=== PATIENT | female | born 1985 | race Caucasian/White ===

== ENCOUNTER → 2020-02-21 | Outpatient (CLI) | payer MEDICAID | LOC: MC.RAD 09:23 | DX: R59.0 Localized enlarged lymph nodes (principal); Z98.82 Breast implant status ==

== ENCOUNTER → 2020-07-10 | Outpatient (CLI) | payer MEDICAID | LOC: ZCOL.LAB 18:46 | DX: J02.9 Acute pharyngitis, unspecified (principal); Z20.828 Contact with and (suspected) exposure to other viral communicable diseases ==

== ENCOUNTER → 2020-07-27 | Outpatient (CLI) | payer MEDICAID | LOC: ZCOL.LAB 16:36 | DX: U07.1 COVID-19 (principal) ==

== ENCOUNTER → 2022-03-14 | Outpatient (CLI) | payer MEDICAID | LOC: MC.RAD 08:00 | DX: D24.1 Benign neoplasm of right breast (principal) ==